=== PATIENT | male | born 1945 | race Caucasian/White ===

== ENCOUNTER 2023-05-22 17:13 | Emergency (ER) | payer MEDICARE, OTHER, SELFPAY ==
[2023-05-22 17:13] VITALS: BP 156/108; PULSE 88; RESP 18; TEMP 36.2; O2SAT 97
[2023-05-22 17:22] VITALS: BMI 36.1
--- NOTE | 2023-05-22 17:37 | EDS_ITS ---
HPI History of Present Illness Chief Complaint: Upper Extremity Injury Informant: patient and spouse/S.O. Narrative Narrative: Been for possible osteomyelitis of his left nondominant hand index finger. Patient had a burn in hot water of index and middle finger in his left hand over the summer. This healed. He then had a burn in hot water of his left index finger 9 days ago. He has been treating it with silver-cream. He then had part of a leaf blower smashed onto this finger yesterday. He went to see family physician today who referred him in here. They did an Xray over at [facility] that was concerning for osteomyelitis. This patient has a history of diabetes. It sounds like he is on metformin and glimepiride. He denies fevers chills nausea and vomiting. But he admits the finger is getting more swollen and red. PFSH PFS Medical History Breast cancer in male Diabetes High cholesterol HTN (hypertension) Sleep apnea Home Medications carvedilol 6.25 mg tablet 6.25 mg PO Q12H 05/22/23 [History Last Taken Unknown] cephalexin 500 mg capsule 500 mg PO Q6 #40 CAPSULES 05/22/23 [Rx Last Taken Unknown] escitalopram oxalate 5 mg tablet 5 mg PO DAILY 05/22/23 [History Last Taken Unknown] glimepiride 1 mg tablet 1 mg PO DAILY 05/22/23 [History Last Taken Unknown] lisinopril 20 mg tablet 20 mg PO DAILY 05/22/23 [History Last Taken Unknown] metformin 1,000 mg tablet 500 mg PO BID 05/22/23 [History Last Taken Unknown] pravastatin 20 mg tablet 20 mg PO DAILY 05/22/23 [History Last Taken Unknown] sulfamethoxazole 800 mg-trimethoprim 160 mg tablet 1 tab PO BID #20 TABLETS 05/22/23 [Rx Last Taken Unknown] tamoxifen 20 mg tablet 20 mg PO DAILY 05/22/23 [History Last Taken Unknown] Allergy/AdvReac Type Severity Reaction Status Date / Time atorvastatin Allergy Pain in Verified 05/22/23 17:21 joints Surgical History H/O mastectomy Hx of cholecystectomy Social History Smoking Status: Former smoker ROS ROS ED Constitutional Constitutional ED: Denies chills or fever(s) ENT ENT ED: Denies rhinorrhea Cardiovascular Cardiovascular: Denies chest pain or palpitations Respiratory/Chest Respiratory/Chest: Denies cough Gastrointestinal Gastrointestinal: Denies nausea or vomiting Musculoskeletal Musculoskeletal: Reports other Details: History of present illness. Integumentary Reports other Details: See history of present illness. 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 ; Denies paresthesias Hematologic/Lymphatic Hematologic/Lymphatic: Denies easy bleeding or easy bruising Allergic/Immunologic Allergic/Immunologic ED: Denies urticaria EXAM Physical Exam Narrative Exam Narrative: Neuro: Patient awake alert sitting in bed and is nontoxic in appearance. HEENT shows no trauma. Mucous membranes are moist. Chest is clear bilaterally and saturations are normal at 97% on room air showing no hypoxia. Heart is regular. I hear no murmur. Abdomen is soft but obese and nontender. Extremities patient has swelling erythema of his left index finger. He can move it somewhat. It is surprisingly not that painful. The erythema and swelling really stops at the proximal aspect of the proximal phalanx. He also has a more darker blood blister on the back of that finger overlying the dorsum of the middle phalanx where he hit an item on it. It is warm. No proximal lymphangitis. Skin: See above Const Vital Signs: 05/22/23 17:13 Temperature 97.2 F L Temperature Source Temporal Pulse Rate 88 Respiratory Rate 18 Blood Pressure 156/108 H Blood Pressure Mean 124 Pulse Ox 97 Oxygen Delivery Method Room Air MDM MDM MDM Narrative Medical decision making narrative: My independent interpretation of the patient's three-view x-ray of his left hand shows a lot of bony changes of that index finger. Final reading is suspicious for osteo-. There is also a foreign body but that is in the other finger that is not infected. CBC shows mild anemia but no elevated white count. Patient's electrolytes show no marked abnormalities and his glucose is normal at 85. I discussed the case with orthopedic surgeon, Dr. Che. We reviewed the x- ray findings and I was able to send some images. The plan will be to start him on antibiotics. He will follow-up acutely in the office on Thursday or Thursday. I did outline the areas of redness with a marker. If it spreading much beyond this we recommend he come back for admission but at this point we will try to manage this as an outpatient. Discharge Plan Triage Chief Complaint: Upper Extremity Injury Other Complaint: Wound ED Provider: John Hoffman Dx/Rx/DC Orders Clinical Impression: Infected blister of left index finger, Partial thickness burn of left index finger Instructions: ED Burn, Infected Prescriptions: New sulfamethoxazole-trimethoprim [sulfamethoxazole-trimethoprim] 800-160 mg tablet 1 tab PO BID Qty: 20 0RF cephalexin [cephalexin] 500 mg capsule 500 mg PO Q6 Qty: 40 0RF No Action carvedilol 6.25 mg tablet 6.25 mg PO Q12H Patient Comments: TAKE 1 TABLET BY MOUTH TWICE A DAY WITH MEALS metformin 1,000 mg tablet 500 mg PO BID Patient Comments: TAKE 1 TABLET BY MOUTH TWICE A DAY tamoxifen 20 mg tablet 20 mg PO DAILY Patient Comments: TAKE 1 TABLET BY MOUTH EVERY DAY glimepiride 1 mg tablet 1 mg PO DAILY Patient Comments: TAKE 1 TABLET BY MOUTH EVERY DAY escitalopram oxalate 5 mg tablet 5 mg PO DAILY Patient Comments: TAKE 1 TABLET BY MOUTH EVERY DAY lisinopril 20 mg tablet 20 mg PO DAILY Patient Comments: TAKE 1 TABLET BY MOUTH EVERY DAY pravastatin 20 mg tablet 20 mg PO DAILY Patient Comments: TAKE 1 TABLET BY MOUTH AT BEDTIME Primary Care Provider: Yaya Medina Referrals: Minh Che DO [[facility] Staff - Active Staff] - 2 Days for wound check (Call Thursday morning to be seen Thursday or Thursday.) Hira Coppola Chi, MD [Med Staff - Active Staff] - Disposition Disposition: Home, Self Care
[2023-05-22] MEDS: Vancomycin HCl 1,750 MG in 0.9% Normal Saline (500mL Bag) 500 ML 250 MG IV (18:27)
[2023-05-22 18:33] LABS: Absolute Lymphocyte Count 1.34 X10^3/uL (0.83-4.51); Absolute Neutrophil Count 6.1 X10^3/uL (2.0-7.7); Basophil# 0.07 X10^3/uL; Basophil% 0.8 % (0-1); Eosinophil# 0.41 X10^3/uL; Eosinophils% 4.8 % (0-5); Hematocrit 38.6 % (40-54); Hemoglobin 12.3 g/dL (13.0-16.5); Lymphocyte # 1.34 X10^3/ul (0.83-4.51); Lymphocyte % 15.8 % (19-41); Mean Corp Hgb Conc 31.9 g/dL (32-36); Mean Corpuscular Hgb 29.6 pg (27.0-32.0); Mean Platelet Vol. 10.8 fl (6.2-12.0); Monocyte# 0.56 X10^3/uL; Monocyte% 6.6 % (0-10); NRBC Flagged by Analyzer 0 % (0-5); Neutrophil # 6.07 X10^3/uL (2.7-7.7); Neutrophil % 71.8 % (47-70); Platelet Count 148 K/mm3 (150-450); RBC Distribution Width CV 13.2 % (11.6-14.6); RBC Distribution Width SD 45.3 fl (35.1-43.9); Red Blood Count 4.15 M/mm3 (4.6-6.2); White Blood Count 8.5 K/mm3 (4.4-11.0)
--- NOTE | 2023-05-22 18:35 | RAD_ITS ---
INDICATION: swelling, osteo, trauma, burn EXAMINATION/TECHNIQUE: X-RAY - LEFT XR Hand Min 3 Views 3 VIEWS COMPARISON: FINDINGS: Fracture of the second distal phalanx with 2 mm dorsal displacement of the distal fragment. Fracture appears subacute, with dystrophic calcification and bone resorption. Osteomyelitis is not excluded. Healing fracture of the third distal phalanx. No displacement or angulation. Joint spaces are well-maintained. 6 mm metallic foreign body in the anterolateral soft tissues of the third digit distally. RAD/Hand Min 3 Views IMPRESSION: Subacute fracture of the second distal phalanx with bone resorption. Osteomyelitis is not excluded. Metallic foreign body in the soft tissues of the third digit. Healing fracture of the third distal phalanx. Electronically Signed: Fany Burnett MD at 19:51 EDT Reading Location ID and State: [id number] / Tel , Service support ,
[2023-05-22 18:52] LABS: Anion Gap 3 (5-15); BUN 21 mg/dL (7-18); BUN/Creat Ratio 19.1 RATIO (10-20); Calcium,Total 8.7 mg/dL (8.5-10.1); Chloride 108 mmol/L (98-107); EST Glomerular Filtration Rate 69 mL/min (>60); Est Glom Filt Rate - Afr Amer 83 mL/min (>60); Glucose 85 mg/dL (74-106); Potassium 4.4 mmol/L (3.5-5.1); Sodium Level 141 mmol/L (136-145)
[2023-05-22 18:56] LABS: Lactic Acid 1.5 mmol/L (0.4-1.9)
[2023-05-22] MEDS: Smz/Tmp Ds Tablet 1 TABLET PO (20:32)
[2023-05-22] MEDS: Cephalexin 250 MG Capsule 500 MG PO (20:32)
== END 2023-05-22 21:03 | disposition home or self-care (01) ==
PROVIDERS: Emergency Provider Emergency Medicine; PCP Preventive Medicine Occupational Medicine; Visit Provider Emergency Medicine
DX: T23.222A Burn of second degree of single left finger (nail) except thumb, initial encounter (principal); E11.9 Type 2 diabetes mellitus without complications; Z87.891 Personal history of nicotine dependence; E78.00 Pure hypercholesterolemia, unspecified; I10 Essential (primary) hypertension; Z79.84 Long term (current) use of oral hypoglycemic drugs; Z79.899 Other long term (current) drug therapy; Z85.3 Personal history of malignant neoplasm of breast; Z90.49 Acquired absence of other specified parts of digestive tract; Z90.10 Acquired absence of unspecified breast and nipple; X12.XXXA Contact with other hot fluids, initial encounter; S60.421A Blister (nonthermal) of left index finger, initial encounter
CPT/HCPCS: 73130; 80048; 83605; 85025; 87040; 96365; 96366; 99284; J7040; J7050

== ENCOUNTER 2023-06-11 11:53 | Day surgery (SDC) | payer MEDICARE, OTHER, SELFPAY ==
[2023-06-11 12:18] VITALS: BP 136/76; PULSE 72; RESP 16; TEMP 36.3; O2SAT 96; BMI 34.4
[2023-06-11] MEDS: Lactated Ringers 1,000 ML 15 ML IV (12:50)
[2023-06-11 13:12] LABS: Bedside Glucose 97 mg/dL (74-106)
--- NOTE | 2023-06-11 14:00 | RAD_ITS ---
STUDY: X-RAY - LEFT HAND, ATTENTION THIRD FINGER REASON FOR EXAM: Male, 78 years old. Foreign body removal. TECHNIQUE: 2 digital documentation view(s) of the finger were obtained. COMPARISON: May 22, 2023. FINDINGS: 2 digital documentation views show osteoarthritic changes and no metallic foreign body. RAD/Finger(s) Min 2 Views IMPRESSION: Digital documentation views. Electronically Signed: Ryan Mariscal MD at 10:04 EST ,
[2023-06-11] MEDS: Cefazolin 2 GM in 0.9% Normal Saline (100mL Bag) 100 ML IV (14:45)
[2023-06-11] MEDS: Lidocaine 1% /Epi 1:100 (50ml) 50 ML VIAL (15:00)
[2023-06-11] MEDS: Bupivacaine Mpf 0.5% 30 ML VIAL (15:00)
[2023-06-11 15:30] VITALS: BP 136/76; BP 144/74; PULSE 86; RESP 16; TEMP 36.8; O2SAT 97
--- NOTE | 2023-06-11 15:42 | DCINST_ITS ---
Discharge Instructions Follow Up Care Test Results: Test results from this visit will be discussed in further detail at your follow- up appointment, if applicable. Discharge Plan Admission Primary Reason for Your Visit: Left hand surgery Attending Provider: Minh Che Primary Care Provider: Yaya Medina Instructions Additional Instructions / Restrictions: Follow preprinted instructions from your surgeons office. Discharge Orders/Prescriptions Prescriptions: New oxycodone 5 mg tablet 5 mg PO Q6H PRN (Reason: pain) 7 Days Qty: 28 0RF No Action carvedilol 6.25 mg tablet 6.25 mg PO BID Patient Comments: TAKE 1 TABLET BY MOUTH TWICE A DAY WITH MEALS metformin 1,000 mg tablet 1,000 mg PO BID Patient Comments: TAKE 1 TABLET BY MOUTH TWICE A DAY tamoxifen 20 mg tablet 20 mg PO DAILY Patient Comments: TAKE 1 TABLET BY MOUTH EVERY DAY glimepiride 1 mg tablet 1 mg PO DAILY Patient Comments: TAKE 1 TABLET BY MOUTH EVERY DAY escitalopram oxalate 5 mg tablet 5 mg PO DAILY Patient Comments: TAKE 1 TABLET BY MOUTH EVERY DAY lisinopril 20 mg tablet 20 mg PO DAILY Patient Comments: TAKE 1 TABLET BY MOUTH EVERY DAY pravastatin 20 mg tablet 20 mg PO DAILY Patient Comments: TAKE 1 TABLET BY MOUTH AT BEDTIME sulfamethoxazole-trimethoprim [sulfamethoxazole-trimethoprim] 800-160 mg tablet 1 tab PO BID Qty: 20 0RF aspirin 81 mg capsule 81 mg PO BID Tart Henderson Extract 1,000 mg capsule 1,200 mg PO BID cephalexin [cephalexin] 500 mg capsule 500 mg PO TID cholecalciferol (vitamin D3) [Vitamin D3] 25 mcg (1,000 unit) capsule 25 mcg PO DAILY calcium carbonate 500 mg calcium (1,250 mg) tablet 500 mg PO DAILY Referrals / Follow Up: Minh Che DO [Med Staff - Active Staff] - Yaya Medina DO [Primary Care Provider] - Disposition Disposition (needs filled in before D/C Order can be placed): Home, Self Care
[2023-06-11 15:45] VITALS: BP 136/76; BP 146/69; PULSE 83; RESP 16; O2SAT 95
--- NOTE | 2023-06-11 15:45 | OP.PCM_ITS ---
Report of Operation Date of Procedure: 06/11/23
--- NOTE | 2023-06-11 15:45 | PCM.OPRPT ---
Report of Operation Date of Procedure: 06/11/23 Description of Surgical Findings:: Preoperative diagnosis: 1. Left index finger distal phalanx osteomyelitis 2. Left long finger metallic foreign body Postoperative diagnosis: 1. Left index finger distal phalanx osteomyelitis 2. Left long finger metallic foreign body Procedures: 1. Left index finger trans middle phalanx amputation 2. Left long finger removal of metallic foreign body Surgeon: Minh Che DO Punchboard Inserter: Christie Gonzales PA-C Anesthesia: General LMA with digital nerve blocks Acrobatic Rigger: Aime Singh CRNA Estimated blood loss: 5 cc IV fluids: 400 cc crystalloid Urine output: None recorded Packing/drains: None Specimen: Left index finger tip sent for culture Implants: None Complications: None apparent Intraoperative findings: Osteomyelitic distal phalanx, normal-appearing middle phalanx of the left index finger. Metallic foreign body retrieved from the left long finger consistent with history of fishing hook. Preoperative indications: This is a 78-year-old male who was first seen in the emergency department on 05/22/2023 following 2 separate thermal injuries to his left index and long finger. There was concern for acute cellulitis in the setting of thermal injury and patient was started on antibiotics. X-ray was obtained and was concerning for distal phalanx osteomyelitis in the setting of pathologic fracture. He was started on oral antibiotics. Patient has a history of diabetes as well as severe bilateral carpal tunnel syndrome and is virtually asensate in bilateral median nerve distributions. He followed up with my office. Cellulitis was improving with oral antibiotics. Follow-up x-rays approximately 2 weeks later revealed near complete lysis of the distal phalanx concerning for progressive osteomyelitis. The tuft of the distal phalanx was protruding through a wound at the tip of the index finger. I recommended surgical intervention in the form of left index finger amputation at or proximal to the distal interphalangeal joint. The risks, benefits, alternatives to procedure were reviewed with the patient at length and he agreed to proceed. Risk included but were not limited to bleeding infection, persistent infection, nonhealing wound, phantom limb pain, neuroma formation, need for more proximal amputation, neurovascular injury, loss of function of the hand. A metallic foreign body was noted incidentally on plain films in the soft tissue pulp of the left long finger. I recommended removal of the foreign body at time of amputation due to the possibility of an MRI for further evaluation of osteomyelitis in the postoperative course. He agreed and wished to have metallic foreign body removed. He noted a injury approximately 15 years ago when a fishing hook was embedded in his left long finger and he was unable to remove it, instead he cut the hook at the level of the skin and does not report any issues with it at this time. Description of procedure: Patient was identified in the preoperative holding area by name, medical record number, and date of . The operative digits were marked. All questions were answered to the patient's satisfaction. At time of his procedure, patient was brought to the operative suite and positioned supine on a standard operating table. General anesthesia was induced and LMA was placed. Digital nerve blocks were then administered prior to prepping with 20 cc total of a 50: 50 mixture of 1% lidocaine with epinephrine 1: 100,000: 0.5% plain bupivacaine. We then prepped and draped in the left hand and normal, sterile orthopedic fashion. We performed timeout with all parties in attendance in agreement with the side, site, and operation be performed. No concerns were voiced and would like to proceed with surgery. I personally my attention to the left long finger given the absence of infection. A turnicot was applied for approximately 5 minutes. Fluoroscopy was brought in to identify the foreign body marked the skin. A mid axial 1 cm incision was made overlying the distal phalanx. Blunt dissection in the subcutaneous volar pulp revealed a metallic foreign body and this was retrieved in its entirety. Fluoroscopy confirmed complete removal of metallic foreign body. We then copiously irrigated this wound. Skin was reapproximated with simple 4-0 Prolene suture. I then turned my attention to the index finger. A fishmouth incision was made proximal to the germinal matrix. Full-thickness skin flaps were developed down to the level of the extensor tendon. Extensor tendon was amputated at the level of the distal interphalangeal joint and allowed to retract into the finger. Neurovascular bundles were identified. Vessels were cauterized with bipolar cautery. Digital nerves were put on stretch and sharply transected with a 15 blade scalpel and allowed to retract into the soft tissues. Collateral ligaments were then released as well as the volar plate. FDP tendon was then released sharply with 15 blade scalpel amputation was completed. Fingertip was sent for tissue culture. There was severe degenerative changes and eburnation of the middle phalanx at the DIP joint. I removed approximately 2 mm of eburnated bone. Middle phalanx bone appeared normal in consistency and did not appear to have pathologic/osteomyelitic changes. I felt this level amputation was appropriate. Tourniquet was then removed. Hemostasis was excellent. Wound was copiously irrigated with normal saline solution. Amputation stump was then closed with interrupted simple 4-0 Prolene suture. A bulky sterile compression dressing was applied. Patient tolerated procedure well without complication. He was safely awoken the operative suite. He was extubated and transferred to his gurney and subsequently to PACU in stable condition. Need for skilled orthopaedic physician assistant: Christie Gonzales PA-C was critical to the outcome of the case. During the course of the procedure the physician orthopaedic physician assistant played a vital role. Her intimate knowledge of my steps in the procedure aided in safe and expedient completion of the procedure. The PA played a vital role in positioning particularly in obtaining the appropriate positioning. The PA was also vital in the retraction of soft tissues during the exposure and protecting vital structures. She also played a vital role in closure and dressing application with my direct supervision. Postoperative plan: Nonweightbearing to the operative digits. Maintain surgical dressing x2 days then okay to remove and shower. No tub soaks. Continue oral antibiotics x7 days postoperatively. Follow-up in 14 days for suture removal. Ice and elevation. Range of motion as tolerated to the operative digits.
[2023-06-11 16:00] VITALS: BP 136/76; BP 147/71; PULSE 84; RESP 16; O2SAT 95
[2023-06-11 16:04] VITALS: BP 136/76; BP 142/71; PULSE 86; RESP 16; TEMP 36.2; O2SAT 95
[2023-06-11 16:15] VITALS: BP 136/76
== END 2023-06-11 16:32 | disposition home or self-care (01) ==
LOC: SDC 11:56 → AC 11:58
PROVIDERS: PCP Preventive Medicine Occupational Medicine; Referring Provider Student in an Organized Health Care Education/Training Program; Visit Provider Student in an Organized Health Care Education/Training Program
PROC: (CPT 26951; principal; 2023-06-11 13:20)
DX: S60.453A Superficial foreign body of left middle finger, initial encounter (principal); M86.9 Osteomyelitis, unspecified; J44.9 Chronic obstructive pulmonary disease, unspecified; E11.9 Type 2 diabetes mellitus without complications; Z90.10 Acquired absence of unspecified breast and nipple; Z85.3 Personal history of malignant neoplasm of breast; Z96.651 Presence of right artificial knee joint; Z90.49 Acquired absence of other specified parts of digestive tract; Z87.891 Personal history of nicotine dependence; S62.631D Displaced fracture of distal phalanx of left index finger, subsequent encounter for fracture with routine healing; S61.211D Laceration without foreign body of left index finger without damage to nail, subsequent encounter; G56.03 Carpal tunnel syndrome, bilateral upper limbs; R20.2 Paresthesia of skin; I10 Essential (primary) hypertension
CPT/HCPCS: 26951; 10121; 01830; 73140; 76000; 82962; 87015; 87070; 87075; 87102; 87116; 87186; 87205; 87206; J7120; J2405

== ENCOUNTER → 2025-06-05 | Outpatient (CLI) | payer MEDICARE, OTHER, SELFPAY ==
[2025-06-05 11:07] LABS: Platelet Count 142 K/mm3 (150-450)
[2025-06-05 11:11] LABS: Partial Thromboplast Time 25.8 Seconds (24.1-36.2); Prothrombin Time (Protime)PT. 12.8 SECONDS (11.7-14.9)
== END | disposition home or self-care (01) ==
LOC: PAVLAB 10:46
PROVIDERS: PCP Nurse Practitioner Family; Referring Provider Internal Medicine Critical Care Medicine; Visit Provider Internal Medicine Critical Care Medicine
DX: R91.8 Other nonspecific abnormal finding of lung field (principal)
CPT/HCPCS: 36415; 85049; 85610; 85730

== ENCOUNTER → 2025-06-07 | Outpatient (CLI) | payer MEDICARE, OTHER, SELFPAY ==
[2025-06-07] VITALS (19 sets, daily range): BP systolic 92–184; BP diastolic 43–94; PULSE 77–87; RESP 11–20; TEMP 36.7; O2SAT 89–100; BMI 34.2
--- NOTE | 2025-06-07 08:39 | CT_ITS ---
PROCEDURE: BIOPSY/INJ OR NEEDLE PLACEMENT 06/07/2025 REASON FOR EXAM: PET + RUL NODULE TECHNIQUE: Procedure Code: CTBX Modality: CT Procedure: BIOPSY/INJ OR NEEDLE PLACEMENT One or more dose reduction techniques were used (e.g., Automated exposure control, adjustment of the mA and/or kV according to patient size, use of iterative reconstruction technique. RADIATION DOSE SUMMARY: DLP: 1542.19 mGycm COMPARISON: None available at the time of dictation. FINDINGS: Conscious sedation was employed for this procedure, with start time of 1022 hours and stop time of 1039 hours. Intravenous administration of 1 mg Versed and 25 mcg fentanyl was used. Procedure: Following informed consent, and using standard sterile technique, a CT-guided core biopsy of a right upper lobe peripheral spiculated nodule was performed. 2% lidocaine local anesthesia was followed by placement of a 20 cm 20 gauge CorVocet core biopsy system. 3 samples were then obtained. No complication was encountered, in the patient left the department in good condition without significant complaint. Follow on chest x-rays are planned. CT/Biopsy/Inj or Needle Placement IMPRESSION: Successful CT-guided core biopsy of a spiculated right upper lobe nodule. Path ology results pending. Reading Location: [place] [id number]
[2025-06-07] MEDS: Midazolam 2 MG/2 ML Syringe IV (10:22)
[2025-06-07] MEDS: 0.9% Normal Saline (250mL Bag) 250 ML 15 ML IV (10:24)
[2025-06-07] MEDS: fentaNYL 100 MCG/2 ML Ampul IV (10:26)
[2025-06-07] MEDS: Lidocaine 2% (20 ml mdv) 20 ML Vial INFILT (10:28)
--- NOTE | 2025-06-07 10:35 | ASPIGT_PTH ---
PATIENT: TOMY GRECO LOC: [place] U#:[id number] AGE/SX: 80/M ROOM: RE06/07/[address]: Dr. Rishi Gomes DO : 1945 BED: DIS: 06/07/2025 SPEC #: [id number] RECD: 06/07/25 10:45 STATUS: SHANI REQ #: [id number] BRENDA: 06/07/25 10:[address]: Risih Gomes DEPT: SURGICAL PATHOLOGY RECD BY: Carlos Hinton ENTERED: 06/07/25 13:50 SP TYPE: ASP RAD OTHR DR: YEFRI TREVIÑO, MANAGED CARE DIRECTOR-C Tissues: A - Lung, NOS Procedures: FNA Specimen Adequacy Immunohistochemical Stains Special Stain Group II Surgery Specimen Level V Imprint (control) IHC Stain ADDITIONAL HEADER OPERATION: CT guided lung biopsy PRE-OP DIAGNOSIS: Right lung nodule TISSUE SUBMITTED: A- Right upper lung nodule MICROSCOPIC DIAGNOSIS A. Right upper lung, nodule, CT-guided core biopsy: - Squamous cell carcinoma. - IHC positive for pankeratin, CK5/6, p40; and negative for CK7, CK20, TTF-1, and Napsin A, supporting the histologic impression. COMMENT The specimen is evaluated at the time of biopsy by Dr. Terrell. Immediate Evaluation = 1. Adequate. 2. Adequate. MICROSCOPIC DESCRIPTION Slides are reviewed. All matched controls reacted appropriately. These tests were developed and their performance characteristics determined by [facility]. They may not have been cleared or approved by the U.S. Food and Drug Administration. The FDA has determined that such clearance or approval is not necessary. The above immunohistochemical markers and/or special stains have been reviewed by the Pathologist. GROSS DESCRIPTION A. Received in formalin labeled the patient's name and date of are multiple snyder and focally anthracotic tissue core fragments, <0.1 cm to 0.7 x 0.1 cm. Touch preparations are made. Entirely submitted in 2 cassettes. UT 06/07/2025PT:[id number]
--- NOTE | 2025-06-07 11:00 | RAD_ITS ---
PROCEDURE: CHEST INSP/EXP 2 VIEW 06/07/2025 REASON FOR EXAM: POST LUNG BIOPSY TECHNIQUE: Procedure Code: RADCXRINSPEXP Modality: DX Procedure: CHEST INSP/EXP 2 VIEW COMPARISON: None FINDINGS: Inspiration expiration views were obtained following right lung biopsy. No evidence of pneumothorax. RAD/Chest Insp/Exp 2 View IMPRESSION: No evidence of pneumothorax on the post right lung biopsy radiographs. Reading Location: [id number]
--- NOTE | 2025-06-07 13:30 | RAD_ITS ---
PROCEDURE: CHEST INSP/EXP 2 VIEW 06/07/2025 REASON FOR EXAM: POST LUNG BIOPSY, 3 hours post right upper lobe biopsy TECHNIQUE: Procedure Code: RADCXRINSPEXP Modality: DX Procedure: CHEST INSP/EXP 2 VIEW COMPARISON: Chest x-ray of approximately 2 hours earlier the same day. RAD/Chest Insp/Exp 2 View IMPRESSION: A very tiny right apical pneumothorax is seen Areas increased density of the right upper lung are consistent with post biopsy small amount of hemorrhage. No pleural effusion is seen. No left pneumothorax is noted. The cardiomediastinal silhouette is stable, without evidence of cardiomegaly. Reading Location: [place] [id number]
== END | disposition home or self-care (01) ==
LOC: CT 08:37
PROVIDERS: PCP Nurse Practitioner Family; Referring Provider Internal Medicine Critical Care Medicine; Visit Provider Internal Medicine Critical Care Medicine
DX: C44.92 Squamous cell carcinoma of skin, unspecified (principal); C78.01 Secondary malignant neoplasm of right lung; C78.02 Secondary malignant neoplasm of left lung
CPT/HCPCS: 32408; 71046; 77012; 88172; 88307; 88313; 88341; 88342; 99156; A4216